=== PATIENT | male | born 1975 | race Caucasian/White ===

== ENCOUNTER 2016-07-29 13:07 | Emergency (ER) | payer SELFPAY ==
[2016-07-29] MEDS ORDERED: IBUPROFEN 800 MG TABLET PO ONE (13:15)
--- NOTE | 2016-07-29 13:16 | ER Document Report ---
ED Medical Screen (RME) - General Stated Complaint: ANKLE INJURY Mode of Arrival: Ambulatory Information source: Patient Notes: Patient reports a hitting her left ankle accidentally with a sledgehammer. Patient complains of continued left ankle pain. I have greeted and performed a rapid initial assessment of this patient. A comprehensive ED assessment and evaluation of the patient, analysis of test results and completion of the medical decision making process will be conducted by additional ED providers. TRAVEL OUTSIDE OF THE [place] IN LAST 30 DAYS: No - Related Data Allergies/Adverse Reactions: Penicillins Allergy (Verified 07/29/16 13:14) Past Medical History Pulmonary Medical History: Reports: Hx Asthma, Hx COPD Renal/ Medical History: Reports: Hx Kidney Stones Musculoskeltal Medical History: Reports Hx Musculoskeletal Trauma - Immunizations Immunizations up to date: Yes Hx Diphtheria, Pertussis, Tetanus Vaccination: Yes Physical Exam - Extremities General lower extremity: Tender - Left medial ankle
--- NOTE | 2016-07-29 14:00 | ER Document Report ---
ED Extremity Problem, Lower - General Chief Complaint: Ankle Injury Stated Complaint: ANKLE INJURY Mode of Arrival: Ambulatory Information source: Patient, [facility] Records Notes: This 40-year-old male patient comes emergency room complaining of pain to his left medial ankle. He reports he struck the medial ankle with a sledgehammer yesterday afternoon while he was trying to knock doorknobs off an old door. TRAVEL OUTSIDE OF THE [place] 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 Lives with: Family Family History: Arthritis, CAD, DM, Hyperlipidemia, Hypertension Patient has suicidal ideation: No Patient has homicidal ideation: No - Past Medical History Cardiac Medical History: Reports: None Pulmonary Medical History: Reports: Hx Asthma, Hx COPD EENT Medical History: Reports: None Neurological Medical History: Reports: None Endocrine Medical History: Reports: None Renal/ Medical History: Reports: Hx Kidney Stones GI Medical History: Reports: None Musculoskeltal Medical History: Reports Hx Musculoskeletal Trauma Skin Medical History: Reports None Psychiatric Medical History: Reports: None Surgical Hx: Negative - Immunizations Immunizations up to date: Yes Hx Diphtheria, Pertussis, Tetanus Vaccination: Yes Review of Systems - Review of Systems Constitutional: No symptoms reported EENT: No symptoms reported Cardiovascular: No symptoms reported Respiratory: No symptoms reported Gastrointestinal: No symptoms reported Genitourinary: No symptoms reported Musculoskeletal: See HPI, Back pain - Chronic back pain Skin: No symptoms reported Hematologic/Lymphatic: No symptoms reported Neurological/Psychological: No symptoms reported Physical Exam - Vital signs Vitals: Temp Pulse Resp BP Pulse Ox 97.7 F 83 16 125/83 97 07/29/16 13:17 07/29/16 13:17 07/29/16 13:17 07/29/16 13:17 07/29/16 13:17 Interpretation: Normal - General General appearance: Appears well, Alert In distress: None - HEENT Head: Normocephalic, Atraumatic Eyes: Normal Pupils: PERRL - Respiratory Respiratory status: No respiratory distress - Cardiovascular Rhythm: Regular - Abdominal Inspection: Normal - Back Back: Normal - Extremities General upper extremity: Normal inspection General lower extremity: Other - The left medial ankle over the medial malleolus is contused, swollen, quite tender to palpate. There is a small skin abrasion. - Neurological Neuro grossly intact: Yes - Psychological Associated symptoms: Normal affect, Normal mood Course - Vital Signs Vital signs: Temp Pulse Resp BP Pulse Ox 97.7 F 83 16 125/83 97 07/29/16 13:17 07/29/16 13:17 07/29/16 13:17 07/29/16 13:17 07/29/16 13:17 Discharge - Discharge Clinical Impression: Contusion of ankle, left Qualifiers: Encounter type: initial encounter Qualified Code(s): S90.02XA - Contusion of left ankle, initial encounter Condition: Stable Disposition: HOME, SELF-CARE Additional Instructions: Contusion: Your injury has resulted in a contusion -- a crushing of the deep tissues. No injury to important structures was detected during the physician's exam. Contusions vary in the amount of pain they cause, and in the length of time required for healing. Typically, the area will become bruised, and will remain painful to touch for two or three weeks. However, most patients are back to working and playing within a few days. After the initial period of rest and cold-packs, your symptoms (together with the doctor's recommendations) will determine how rapidly you can get back to full activity. Usually this means "do what feels okay, but don't do things that hurt." If re-examination was recommended, it's important to follow up as instructed. Call the doctor or return any time if pain increases, if swelling becomes severe, if you develop numbness or weakness in an injured extremity, or if any other alarming symptoms occur. ELEVATE THE FOOT MUCH POSSIBLE. LIMIT WALKING. USE MOIST HEAT. FOLLOW UP WITH A LOCAL MEDICAL DOCTOR IF NOT IMPROVING. Prescriptions: Oxycodone HCl/Acetaminophen [Percocet 5-325 mg Tablet] 1 - 2 tab PO ASDIR PRN # 15 tablet PRN Reason:
[2016-07-29 14:10] VITALS: BP 125/81
== END 2016-07-29 14:12 | disposition home or self-care (01) ==
LOC: ER 13:07
DX: S90.02XA Contusion of left ankle, initial encounter (principal); X58.XXXA Exposure to other specified factors, initial encounter; F17.210 Nicotine dependence, cigarettes, uncomplicated
CPT/HCPCS: 99283

== ENCOUNTER 2016-08-15 14:58 | Emergency (ER) | payer SELFPAY ==
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
[2016-08-15] MEDS ORDERED: IPRATROPIUM/ALBUTEROL 0.5-2.5 MG/3 ML AMPUL NEB ONE (15:51)
[2016-08-15] MEDS ORDERED: PREDNISONE 20 MG TABLET PO ONE (15:51)
[2016-08-15] MEDS ORDERED: ALBUTEROL SULFATE 0.083% NEB 2.5 MG/3 ML AMPUL NEB SCH (16:00)
[2016-08-15] MEDS ORDERED: IBUPROFEN 600 MG TABLET PO ONE (16:20)
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
[2016-08-15 17:25] VITALS: BP 131/72
== END 2016-08-15 17:19 | disposition home or self-care (01) ==
LOC: ER 14:58
DX: S20.212A Contusion of left front wall of thorax, initial encounter (principal); S60.221A Contusion of right hand, initial encounter; R07.81 Pleurodynia; Z87.891 Personal history of nicotine dependence; X58.XXXA Exposure to other specified factors, initial encounter
CPT/HCPCS: 94640; 99283; 71020; 73130; J7512; J7620

== ENCOUNTER 2017-12-02 14:38 | Emergency (ER) | payer SELFPAY ==
[2017-12-02 14:44] VITALS: BP 132/74
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
--- NOTE | 2017-12-02 15:38 | RADIOLOGY REPORT (SQ) ---
EXAM DESCRIPTION: HAND RIGHT 3 VIEWS COMPLETED DATE/TIME: 12/02/2017 3:03 pm REASON FOR STUDY: Injury to hand yesterday COMPARISON: 2017. NUMBER OF VIEWS: Three views right hand. LIMITATIONS: None. FINDINGS: No acute fracture evident. Old 5th metacarpal fracture, healed. No carpal malalignment. No radiopaque foreign body. OTHER: No other significant finding. IMPRESSION: Old trauma. No acute fracture evident. TECHNICAL DOCUMENTATION: JOB ID: [id number] Reading location - IP/workstation name: [email or web address]
== END 2017-12-02 15:55 | disposition home or self-care (01) ==
LOC: ER 14:38
DX: M79.641 Pain in right hand (principal); M79.89 Other specified soft tissue disorders; W22.8XXA Striking against or struck by other objects, initial encounter; J43.9 Emphysema, unspecified
CPT/HCPCS: 99283

== ENCOUNTER 2018-06-08 13:44 | Emergency (ER) | payer SELFPAY ==
[2018-06-08 14:38] VITALS: BP 125/80
[2018-06-08] MEDS ORDERED: KETOROLAC TROMETHAMINE 60 MG/2 ML SDV IM ONE (15:29)
[2018-06-08] MEDS ORDERED: CLINDAMYCIN HCL 150 MG CAPSULE PO ONE (15:35)
--- NOTE | 2018-06-08 15:35 | ER Document Report ---
ED ENT - General Mode of Arrival: Ambulatory Information source: Patient TRAVEL OUTSIDE OF THE U.S. IN LAST 30 DAYS: No - HPI Patient complains to provider of: Dental problem, Nose problem Onset: Last week Onset/Duration: Gradual Quality of pain: Sharp - Vomiting Severity: Severe Pain Level: 5 Context: Recent Illness - Dental pain, Other Location of pain: Nose, Tooth, Other - Base Associated symptoms: Jaw pain, Runny nose, Sinus pain, Sinus drainage, Other - Dental pain, facial pain Similar symptoms previously: Yes Recently seen / treated by doctor: No - General Chief Complaint: Toothache Stated Complaint: TOOTH PAIN Time Seen by Provider: 06/08/18 15:09 Notes: 42-year-old male presented to ED for complaint of facial pain dental pain and dental infections for more than a week. He states that he had extremely bad teeth for a long time but they have never been very painful. He states that the last week the pain is been horrible and he plans to get his teeth removed after the beginning of the year. He states now the pain in his face is so bad that it hurts to breathe through his right nose. His mouth is full of multiple decayed teeth with swelling to the gums. Patient states he does continue to smoke about half pack per day does not drink or do drugs. Patient is alert oriented respirations regular and unlabored speaking in full sentences. (VIRGINIE SALGADO) - Related Data Allergies/Adverse Reactions: Penicillins Allergy (Verified 06/08/18 13:46) Past Medical History - General Information source: Patient - Social History Smoking Status: Current Every Day Smoker Cigarette use (# per day): Yes - 1/2 ppd Chew tobacco use (# tins/day): Yes Smoking Education Provided: Yes - 4 min Frequency of alcohol use: None Drug Abuse: None Occupation: none Lives with: Alone Family History: Arthritis, CAD, DM, Hyperlipidemia, Hypertension Patient has suicidal ideation: No Patient has homicidal ideation: No - Past Medical History Cardiac Medical History: Reports: None Pulmonary Medical History: Reports: Hx Asthma, Hx COPD EENT Medical History: Reports: None Neurological Medical History: Reports: None Endocrine Medical History: Reports: None Renal/ Medical History: Reports: Hx Kidney Stones Malignancy Medical History: Reports None GI Medical History: Reports: None Musculoskeletal Medical History: Reports Hx Musculoskeletal Trauma Skin Medical History: Reports None Psychiatric Medical History: Reports: None Traumatic Medical History: Reports: Hx Fractures - rib Infectious Medical History: Reports: None Surgical Hx: Negative Past Surgical History: Reports: None - Immunizations Immunizations up to date: Yes Hx Diphtheria, Pertussis, Tetanus Vaccination: Yes Review of Systems - Review of Systems EENT: Sinus pressure, Sinus discharge, Mouth pain, Dental problem, Other - She will pain Cardiovascular: No symptoms reported Respiratory: No symptoms reported Gastrointestinal: No symptoms reported Genitourinary: No symptoms reported Male Genitourinary: No symptoms reported Musculoskeletal: No symptoms reported Skin: No symptoms reported Hematologic/Lymphatic: No symptoms reported Neurological/Psychological: No symptoms reported -: Yes All other systems reviewed and negative Physical Exam - Vital signs Interpretation: Normal - General General appearance: Appears well, Alert - HEENT Head: Normocephalic, Atraumatic Eyes: Normal Pupils: PERRL - Respiratory Respiratory status: No respiratory distress Chest status: Nontender Breath sounds: Normal Chest palpation: Normal - Cardiovascular Rhythm: Regular Heart sounds: Normal auscultation Murmur: No - Abdominal Inspection: Normal Distension: No distension Bowel sounds: Normal Tenderness: Nontender Organomegaly: No organomegaly - Back Back: Normal, Nontender - Extremities General upper extremity: Normal inspection, Nontender, Normal color, Normal ROM, Normal temperature General lower extremity: Normal inspection, Nontender, Normal color, Normal ROM, Normal temperature, Normal weight bearing. No: Juan's sign - Neurological Neuro grossly intact: Yes Cognition: Normal Orientation: AAOx4 Marissa Coma Scale Eye Opening: Spontaneous Marissa Coma Scale Verbal: Oriented Marissa Coma Scale Motor: Obeys Commands Climax Coma Scale Total: 15 Speech: Normal Motor strength normal: LUE, RUE, LLE, RLE Sensory: Normal - Psychological Associated symptoms: Normal affect, Normal mood - Skin Skin Temperature: Warm Skin Moisture: Dry Skin Color: Normal - Vital signs Vitals: Temp Pulse Resp BP Pulse Ox 98.3 F 91 16 125/80 98 06/08/18 14:36 06/08/18 14:36 06/08/18 14:36 06/08/18 14:36 06/08/18 14:36 Course - Re-evaluation Re-evalutation: 06/08/18 22:15 Presentation is most consistent with likely an infected tooth. Airway is patent. Vitals within normal limits. Patient is able swallow without any difficulty. There is no significant facial swelling. No evidence of Yung angina, apical abscess, or airway obstruction. Patient will be started on antibiotics. I've instructed to follow-up with dentistry as earliest ability for definitive management. At this time will discharge with return precautions and follow-up recommendations. Verbal discharge instructions given a the bedside and opportunity for questions given. Medication warnings reviewed. Patient is in agreement with this plan and has verbalized understanding of return precautions and the need for primary care follow-up in the next 24-72 hours. (VIRGINIE SALGADO) - Vital Signs Vital signs: Temp Pulse Resp BP Pulse Ox 98.3 F 91 16 125/80 98 06/08/18 14:36 06/08/18 14:36 06/08/18 14:36 06/08/18 14:36 06/08/18 14:36 Discharge - Discharge Clinical Impression: Pain due to dental caries, Infected dental caries, URI (upper respiratory infection) Condition: Stable Disposition: HOME, SELF-CARE Instructions: Family Physicians / Practices Additional Instructions: TOOTHACHE: Your pain is due to dental decay. The tooth must be repaired in order for you to feel better. You will, therefore, be referred to a dentist. We do not have dentists on the staff at [facility]. Severe swelling or drainage around a tooth usually means a dental abscess. This also requires evaluation and treatment by the dentist, but antibiotics may be prescribed while awaiting dental treatment. You should be rechecked immediately if you develop major swelling of the face, increasing pain, a lump in the jaw or gums, headache, difficulty swallowing, or fever. Upper Respiratory Illness You have a viral infection of the respiratory passages -- a "cold." This common infection causes nasal congestion, drainage, and often sore throat and cough. It is caused by a virus and is highly contagious. The disease usually lasts a week or more, though the worst symptoms are usually over in 3 or 4 days. There is no "cure" for the viral infection -- it must run its course. If there is a complication, such as bacterial infection in the nose, sinuses, middle ear, or bronchial tubes, antibiotics may be required, but antibiotics won't affect the virus. If you smoke, you should STOP!! Drink plenty of fluids. A humidifier may help. An expectorant medication or decongestant may make you more comfortable. Use acetaminophen or ibuprofen for fever or aches. See the doctor if fever persists over two or three days, if there is any significant worsening of your symptoms, or if you simply fail to improve as expected. CLINDAMYCIN: You have been given a prescription for the antibiotic clindamycin. It is often prescribed for infections in the mouth, such as dental infections or abscesses, and for skin infections due to MRSA. It's important that you take all the medication, unless instructed otherwise by your physician. Failure to complete the entire course can result in relapse of your condition. Common side effects of antibiotics include nausea, intestinal cramping, or diarrhea. Women may develop vaginal yeast infections, and babies can get yeast (thrush) in the mouth following the use of antibiotics. Contact your physician if you develop significant side effects from this medication. Allergy to this antibiotic can result in hives, wheezing, faintness, or itching. If symptoms of allergy occur, stop the medication and call the doctor. Toradol Injection You have been given an injection of ketorolac tromethamine (Toradol). This is an excellent, safe drug for pain control. It also has potent antiinflammatory action. You should have significant pain relief within about one hour. Toradol is not addicting and is non-sedating. It does not interfere with driving or work. Call or return if you develop itching, hives, shortness of breath, or rash. FOLLOW-UP CARE: You have been referred for follow-up care to the dentists listed below. Call the dentists office for an appointment as you were instructed or within the next two days. If you experience worsening or a significant change in your symptoms, notify the physician immediately or return to the Emergency Department at any time for re-evaluation. [facility] [address], [place] [phone] [facility] [address] [place] [address] [facility] [address] [facility] [address] [facility] [address] [email or web address] [address] [place] [address] Sunday- 8:00am to 5:00 pm Will see patients from other [facility]. Charges based on income and family size and accepts Medicare, Medicaid, and Insurances Will pull molars [facility] [address] Hours of Operation 8:00 am - 4:30 pm weekdays The following dental offices accept Medicaid: [facility] Dr. Xiao Dr. Flores Dr. Hall Dr. Smith Tom [place], [place], and Dariel oral surgery Dr. Sifuentes ([place]) Dr. Camacho ([place]) [facility] Drs. Fishman and Bassem ([place]) Dr. Alexander ([place]) [facility] Dr. Renteria ([place]) Drs. Patel and ([place]) Medicaid Care Line Prescriptions: RX: Clindamycin HCl 300 mg PO Q6 #40 capsule Forms: Smoking Cessation Education
--- NOTE | 2018-06-08 15:36 | ER Document Report ---
Doctor's Note Notes: I personally and independently obtained patient history and examined the patient in conjunction with the APC and agree with the assessment, treatment plan and disposition of the patient as recorded by the APC, and have reviewed the APC's note. HISTORY OF PRESENT ILLNESS: Patient is a 42-year-old male that presents to the emergency department for chief complaint of dental pain, patient states the pain is been going on for several days and particularly worse today, he feels the pain going up towards his cheek, describes the pain is severe. ROS: Constitutional: Negative for fever. Cardiovascular: Negative for chest pain. Respiratory: Negative for shortness of breath. Gastrointestinal: Negative for vomiting or abdominal pain Musculoskeletal: Negative for arm, leg or back pain Skin: Negative for rash. Neurological: Negative for weakness or numbness. Other than noted above, the 12 point review of systems was reviewed with the patient and were negative, all pertinent findings are included in the HPI. PHYSICAL EXAMINATION: Vital signs reviewed, nursing noted reviewed. GENERAL: Patient appears uncomfortable and in pain on exam. HEAD: Atraumatic, normocephalic. EYES: Eyes appear normal, conjunctiva are normal. ENT: nares patent, oropharynx clear without exudates. Moist mucous membranes. Poor overall dentition, in the right upper gums, particularly laterally, there is mild fluctuance, and there appears to be 2 dental abscesses, recently drained earlier in the emergency department NECK: Normal range of motion, supple without lymphadenopathy LUNGS: Breath sounds clear to auscultation bilaterally and equal. No wheezes rales or rhonchi. HEART: Regular rate and rhythm without murmurs EXTREMITIES: Nontender, good range of motion, no pitting or edema. NEUROLOGICAL: No focal neurological deficits. Moves all extremities spontaneously Motor and sensory grossly intact on exam. PSYCH: Normal mood, normal affect. SKIN: Warm, Dry, normal turgor, no rashes or lesions noted on exposed MEDICAL DECISION MAKING: Patient's exam most consistent with multiple dental abscesses, nontender maxilla ry sinuses, low suspicion for extension of infection into the sinuses, will treat with oral clindamycin 4 times daily, follow-up with dentistry, given anti- inflammatories for pain. Patient advised to follow-up or return to the ER sooner if you develop fevers, or worsening pain not improving on antibiotics. Please review detail APC documentation. *Note is created using voice recognition software and may contain spelling, syntax or grammatical errors.
== END 2018-06-08 15:50 | disposition home or self-care (01) ==
LOC: ER 13:44
DX: J06.9 Acute upper respiratory infection, unspecified (principal); K08.89 Other specified disorders of teeth and supporting structures; K04.7 Periapical abscess without sinus; K02.9 Dental caries, unspecified; R22.0 Localized swelling, mass and lump, head; R51 Headache; R11.10 Vomiting, unspecified; J44.9 Chronic obstructive pulmonary disease, unspecified; F17.200 Nicotine dependence, unspecified, uncomplicated; F17.210 Nicotine dependence, cigarettes, uncomplicated
CPT/HCPCS: 99406; 99283; 96372; J1885

== ENCOUNTER 2018-08-24 00:59 | Emergency (ER) | payer SELFPAY ==
--- NOTE | 2018-08-24 01:01 | ER Document Report ---
ED Medical Screen (RME) - General Stated Complaint: FINGER INJURY Time Seen by Provider: 08/24/18 01:00 Mode of Arrival: Ambulatory Information source: Patient Notes: PT PRESENTS WITH LEFT 4TH FINGER INJURY, TWISTED HEARD A POP I have greeted and performed a rapid initial assessment of this patient. A comprehensive ED assessment and evaluation of the patient, analysis of test results and completion of the medical decision making process will be conducted by additional ED providers. TRAVEL OUTSIDE OF THE [place]. IN LAST 30 DAYS: No - Related Data Allergies/Adverse Reactions: Penicillins Allergy (Verified 06/08/18 13:46) Past Medical History Pulmonary Medical History: Reports: Hx Asthma, Hx COPD Renal/ Medical History: Reports: Hx Kidney Stones. Denies: Hx Peritoneal Dialysis Musculoskeltal Medical History: Reports Hx Musculoskeletal Trauma Traumatic Medical History: Reports: Hx Fractures - rib - Immunizations Immunizations up to date: Yes Hx Diphtheria, Pertussis, Tetanus Vaccination: Yes
--- NOTE | 2018-08-24 02:00 | RADIOLOGY REPORT (SQ) ---
3 VIEWS OF THE LEFT HAND HISTORY: Trauma to fourth digit. COMPARISON: None. FINDINGS: There is an acute mildly displaced and angulated fracture of the 4th metacarpal. No evidence of dislocation. Mild soft tissue swelling of the left hand is noted. Multiple punctate radiopaque densities are present in the soft tissues of the second and third digits, which are nonspecific. IMPRESSION: Acute mildly displaced fracture of the 4th metacarpal.
--- NOTE | 2018-08-24 04:39 | ER Document Report ---
Entered by ANTONY MCNULTY SCRIBE 08/24/18 0311 Acting as scribe for:KO BRIZUELA DO ED Hand/Wrist Injury - General Stated Complaint: FINGER INJURY Time Seen by Provider: 08/24/18 01:00 Mode of Arrival: Ambulatory Information source: Patient Notes: 43-year-old male who presents to the emergency department today with complaints of left hand pain which began prior to arrival today. Patient states he was shaking the hand of someone else and his left fourth finger and their hand became intertangled which "snapped his finger back". Patient states he felt a pop in his hand immediately when this occurred. Patient states he had something similar happen in the remote past which resulted in a broken bone in his right hand and his symptoms today are nearly identical to that time. TRAVEL OUTSIDE OF THE [place] IN LAST 30 DAYS: No - Related Data Allergies/Adverse Reactions: Penicillins Allergy (Verified 06/08/18 13:46) Past Medical History - General Information source: Patient - Social History Smoking Status: Current Every Day Smoker Cigarette use (# per day): Yes Frequency of alcohol use: Social Drug Abuse: None Lives with: Family Family History: Arthritis, CAD, DM, Hyperlipidemia, Hypertension Pulmonary Medical History: Reports: Hx Asthma, Hx COPD Renal/ Medical History: Reports: Hx Kidney Stones Musculoskeletal Medical History: Reports Hx Musculoskeletal Trauma Traumatic Medical History: Reports: Hx Fractures - rib, right hand - Immunizations Immunizations up to date: Yes Hx Diphtheria, Pertussis, Tetanus Vaccination: Yes Review of Systems - Review of Systems Constitutional: No symptoms reported EENT: No symptoms reported Cardiovascular: No symptoms reported Respiratory: No symptoms reported Gastrointestinal: No symptoms reported Genitourinary: No symptoms reported Male Genitourinary: No symptoms reported Musculoskeletal: See HPI, Other - left hand pain Skin: No symptoms reported Hematologic/Lymphatic: No symptoms reported Neurological/Psychological: No symptoms reported -: Yes All other systems reviewed and negative Physical Exam - Notes Notes: PHYSICAL EXAM GENERAL: Alert, interacts well. No acute distress. HEAD: Normocephalic, atraumatic. EYES: Pupils equal, round, and reactive to light. Extraocular movements intact. ENT: Oral mucosa moist, tongue midline. NECK: Full range of motion. Supple. Trachea midline. LUNGS: No respiratory distress. EXTREMITIES: Moves all 4 extremities spontaneously. Tenderness with palpation over the midshaft fracture of the left fourth metacarpal. Difficulty with full extension of 4th digit, but able to do so. Midshaft fracture aligns well with direct pressure. Fourth metacarpal is unstable. Fourth MCP is somewhat sunken. NEUROLOGICAL: Alert and oriented x3. Normal speech. PSYCH: Normal affect, normal mood. SKIN: Warm, dry, normal turgor. No rashes or lesions noted. Course - Re-evaluation Re-evalutation: 08/24/18 04:30 X-ray shows diagonal angulated displaced fracture of the fourth metacarpal. This is an unstable fracture, it reduces well but then displaces again. Patient was placed in splint, he will likely end up needing pinning. This was discussed with the patient. Patient was instructed to call the orthopedic surgery office first thing Sunday to arrange follow-up. Patient will be discharged to home. Procedures - Immobilization Left hand Pre-Proc Neuro Vasc Exam: Normal Immobilizer type: Ulnar Performed by: PCT Post-Proc Neuro Vasc Exam: Normal, Unchanged from pre-exam Alignment checked and good: No - Improved but still somewhat dorsally angulated. Discharge - Discharge Clinical Impression: Displaced fracture of neck of left fourth metacarpal bone Qualifiers: Encounter type: initial encounter Fracture type: closed Qualified Code(s): S62.335A - Displaced fracture of neck of fourth metacarpal bone, left hand, initial encounter for closed fracture Condition: Stable Disposition: HOME, SELF-CARE Additional Instructions: Fractured Metacarpal You have broken a metacarpal bone in the hand. The fracture is usually caused by hitting the hand against a hard surface, but can also be caused by jamming a finger. At first the injury should be rested, elevated, and ice packed. The usual treatment is splinting for four to six weeks. For some patients, a cast is preferable. Due to the nature of your fracture you may need to have surgery to place a pin to permanently fix this finger. The splint has only partially aligned your bones. You need to call orthopedic surgery first thing Sunday to arrange a follow-up appointment. It's important to avoid any twisting or jamming of the fingers while the fracture is healing. Force on the fingers can make the fracture move. Usually, one or two fingers are included in the splint or cast. Sometimes fingers are taped instead -- in this case, extra caution to prevent a twisting of the fingers is necessary. Call the doctor or come back if swelling or pain become severe, if numbness develops, or if you suspect you may have disturbed the fracture. Referrals: MELLO GUNN DO [ACTIVE STAFF] - 08/26/18 I personally performed the services described in the documentation, reviewed and edited the documentation which was dictated to the scribe in my presence, and it accurately records my words and actions.
--- NOTE | 2018-08-24 05:04 | RADIOLOGY REPORT (SQ) ---
EXAM DESCRIPTION: XR HAND 3 OR MORE VIEWS COMPLETED DATE/TME: 08/24/2018 03:41 CLINICAL HISTORY: 43 years, Male, post-splint and reduction COMPARISON: Radiographs obtained earlier today FINDINGS/impression: Interval casting and reduction of fourth metacarpal fracture there is improved alignment but significant apex volar angulation remains.
[2018-08-24 05:28] VITALS: BP 124/68
== END 2018-08-24 05:00 | disposition home or self-care (01) ==
LOC: ER 00:59
DX: S62.335A Displaced fracture of neck of fourth metacarpal bone, left hand, initial encounter for closed fracture (principal); X50.9XXA Other and unspecified overexertion or strenuous movements or postures, initial encounter; Y93.89 Activity, other specified; F17.210 Nicotine dependence, cigarettes, uncomplicated; J44.9 Chronic obstructive pulmonary disease, unspecified; Z88.0 Allergy status to penicillin
CPT/HCPCS: 99283